=== PATIENT | male | born 1965 | race Caucasian/White ===

== ENCOUNTER 2018-03-04 01:17 | Emergency (ER) | payer SELFPAY ==
[~2018-03-04] VITALS: Ht 172.7 cm; Wt 63.5 kg
--- NOTE | 2018-03-04 01:24 | ED.ADGEN ---
Past History Past Medical History: Prostatitis, Other Smoking: Cigarettes Adult General Chief Complaint Chief Complaint "I ve not been feeling well... for a few days now... .. nausea and vomiting any time I eat.." HPI HPI Patient is a 52 year old male who presents with above hx and complaints of nausea, vomiting, dyspnea and Rt chest / shoulder pain. Pt. has had subjective complaints of fever and rigors. Pt. has had some coughing that has been non-productive. No hx travel or specific ill contacts. Pt. denies immunosuppression. Pt. does not follow with primary doctor. Pt. complaints of malaise and arthralgia. Pt quit smoking 6 weeks ago. Review of Systems Review of Systems Constitutional: subjective hx fever or chills [] Eyes: Denies change in visual acuity, redness, or eye pain [] HENT: Denies nasal congestion or sore throat [] Respiratory: Hx of cough and Rt. chest wall discomfort] Cardiovascular: No additional information not addressed in HPI [] GI: Hx of upper rt. abdominal pain, nausea, vomiting. Denies, bloody stools or diarrhea [] : Denies dysuria or hematuria [] Musculoskeletal: Complaints of Rt. back pain and myalgia Integument: Denies rash or skin lesions [] Neurologic: Denies headache, focal weakness or sensory changes [] Endocrine: Denies polyuria or polydipsia [] All other systems were reviewed and found to be within normal limits, except as documented in this note. Family History Family History Noncontributory Current Medications Current Medications Current Medications Medications (Trade) Dose Ordered Sig/Maria A Start Time Stop Time Status Last Admin Dose Admin Albuterol/ Ipratropium (Duoneb) 3 ml RTQID 03/04/18 08:00 03/05/18 07:59 Aspirin (Children'S Aspirin) 324 mg 1X ONCE 03/04/18 02:15 03/04/18 02:17 DC 03/04/18 02:15 324 MG Azithromycin (Zithromax) 500 mg DAILY 03/05/18 09:00 Ceftriaxone Sodium 1 gm/ Sodium Chloride 50 ml @ 100 mls/hr DAILY 03/04/18 09:00 UNV Ceftriaxone Sodium (Rocephin) 1 gm Q24H 03/05/18 09:00 Enoxaparin Sodium (Lovenox 60mg Syringe) 60 mg STK-MED ONCE 03/04/18 04:20 03/04/18 04:21 DC Enoxaparin Sodium (Lovenox) 60 mg 1X ONCE 03/04/18 04:15 03/04/18 05:28 DC 03/04/18 04:15 60 MG Famotidine (Pepcid Vial) 20 mg STK-MED ONCE 03/04/18 01:53 03/04/18 01:54 DC Famotidine (Pepcid) 20 mg 1X ONCE 03/04/18 02:15 03/04/18 02:17 DC 03/04/18 02:15 20 MG Lactated Ringer's 1,000 ml @ 160 mls/hr Q6H15M 03/04/18 03:15 Multivitamins/ Minerals 10 ml/ Folic Acid 1 mg/ Thiamine HCl 100 mg/Lactated Ringer's 1,011.1 ml @ 1,000 mls/ hr 1X ONCE 03/04/18 03:15 03/04/18 04:15 DC Ondansetron HCl (Zofran Odt) 8 mg PRN QID PRN 03/04/18 03:00 Potassium Chloride (KCl Oral Soln) 40 meq 1X ONCE 03/04/18 03:15 03/04/18 03:16 DC Sodium Chloride 1,000 ml @ 1,000 mls/hr 1X ONCE 03/04/18 03:15 03/04/18 04:14 DC 03/04/18 03:26 1,000 MLS/HR Allergies Allergies Allergies Coded Allergies Type Severity Reaction Last Updated Verified No Known Drug Allergies 03/04/18 No Physical Exam Physical Exam Constitutional: Moderately acute distress, ill in appearance. [] HENT: Normocephalic, atraumatic, bilateral external ears normal, oropharynx dry , no oral exudates, nose normal. [] Eyes: PERRLA, EOMI, conjunctiva pale, no discharge. [] Neck: Normal range of motion, no tenderness, supple, no stridor. [] Cardiovascular:Tachycardia Heart rate regular rhythm, no murmur [] Lungs & Thorax: Bilateral breath sounds equal apex with rhonchi and crackles, in Rt. lower lung motta on auscultation Abdomen: Bowel sounds normal, soft, Rt upper quadrant tenderness, no masses, no pulsatile masses. [] Skin: Warm, dry, no erythema, no rash. Pale. Poor turgor. Back: No tenderness, no CVA tenderness. [] Extremities: No tenderness, no cyanosis, no clubbing, ROM intact, no edema. [] Neurologic: Alert and oriented X 3, no gross motor and sensory function deficit , does complain of generalized weakness, no focal deficits noted. [] Psychologic: Affect anxious judgement normal, mood depressed. Current Patient Data Vital Signs Vital Signs Date Time Temp Pulse Resp B/P (MAP) Pulse Ox O2 Delivery O2 Flow Rate FiO2 03/04/18 04:24 97.5 112 22 110/66 (81) 93 Nasal Cannula 2.0 Lab Results Laboratory Tests Test 03/04/18 02:22 03/04/18 02:52 03/04/18 04:49 White Blood Count 17.4 x10^3/uL (4.0-11.0) H Red Blood Count 2.57 x10^6/uL (4.30-5.70) L Hemoglobin 7.3 g/dL (13.0-17.5) L Hematocrit 22.4 % (39.0-53.0) L Mean Corpuscular Volume 87 fL (79-100) Mean Corpuscular Hemoglobin 28 pg (25-35) Mean Corpuscular Hemoglobin Concent 32 g/dL (31-37) Red Cell Distribution Width 13.0 % (11.5-14.5) Platelet Count 323 x10^3/uL (140-400) Neutrophils (%) (Auto) 96 % (31-73) H Lymphocytes (%) (Auto) 1 % (24-48) L Monocytes (%) (Auto) 2 % (0-9) Eosinophils (%) (Auto) 0 % (0-3) Basophils (%) (Auto) 0 % (0-3) Neutrophils # (Auto) 16.7 x10^3uL (1.8-7.7) H Lymphocytes # (Auto) 0.2 x10^3/uL (1.0-4.8) L Monocytes # (Auto) 0.4 x10^3/uL (0.0-1.1) Eosinophils # (Auto) 0.0 x10^3/uL (0.0-0.7) Basophils # (Auto) 0.0 x10^3/uL (0.0-0.2) Segmented Neutrophils % 64 % (35-66) Band Neutrophils % 32 % (0-9) H Lymphocytes % 1 % (24-48) L Monocytes % 3 % (0-10) Platelet Estimate Adequate (ADEQUATE) Prothrombin Time 12.5 SEC (9.4-11.4) H Prothrombin Time INR 1.2 (0.9-1.1) H PTT 32 SEC (23-33) D-Dimer (Perla) 6.14 mg/L (0.00-0.50) H Sodium Level 134 mmol/L (136-145) L Potassium Level 5.9 mmol/L (3.5-5.1) H Chloride Level 93 mmol/L (98-107) L Carbon Dioxide Level 8 mmol/L (21-32) *L Anion Gap 33 (6-14) H Blood Urea Nitrogen > 240 mg/dL (8-26) H Creatinine 18.1 mg/dL (0.7-1.3) H Estimated GFR (Cockcroft-Gault) 2.8 Glucose Level 111 mg/dL (70-99) H Lactic Acid Level 3.6 mmol/L (0.4-2.0) H Calcium Level 8.4 mg/dL (8.5-10.1) L Magnesium Level 1.4 mg/dL (1.8-2.4) L Total Bilirubin 0.7 mg/dL (0.2-1.0) Direct Bilirubin < 0.1 mg/dL (0.0-0.2) Aspartate Amino Transferase (AST) 23 U/L (15-37) Alanine Aminotransferase (ALT) 37 U/L (16-63) Alkaline Phosphatase 100 U/L (46-116) Creatine Kinase 146 U/L (39-308) Creatine Kinase MB (Mass) 7.1 ng/mL (0.0-3.6) H Creatine Kinase MB Relative Index 4.9 % (0-4) H Troponin I Quantitative 0.043 ng/mL (0-0.055) WU-Wxu-U-Type Natriuretic Peptide 1870 pg/mL (0-124) H Total Protein 8.5 g/dL (6.4-8.2) H Albumin 4.2 g/dL (3.4-5.0) Lipase 281 U/L (73-393) POC Troponin I 0.02 ng/ml (<0.08) Urine Collection Type Unknown Urine Color Yellow Urine Clarity Hazy Urine pH 6.0 Urine Specific [place] 1.010 Urine Protein 30 mg/dl (NEG-TRACE) Urine Glucose (UA) Neg mg/dL (NEG) Urine Ketones (Stick) Neg mg/dL (NEG) Urine Blood Mod (NEG) Urine Nitrite Neg (NEG) Urine Bilirubin Neg (NEG) Urine Urobilinogen Dipstick 0.2 mg/dL (0.2 mg/dL) Urine Leukocyte Esterase Large (NEG) Urine RBC Occ /HPF (0-2) Urine WBC >40 /HPF (0-4) Urine Squamous Epithelial Cells None /LPF Urine Bacteria Few /HPF (0-FEW) EKG EKG My interpretation of EKG shows sinus tachy. 112, non specific radha lateral changes. No findings of acue STEMI with contralateral changes. [] Radiology/Procedures Radiology/Procedures My interpretation of CXR shows Rt. lower lobe consolidation- infiltrate consistent with pneumonia. [] Course & Med Decision Making Course & Med Decision Making Pertinent Labs and Imaging studies reviewed. (See chart for details) Lab still down for Electrolytes Admit to Dr. Rondon- [facility] further eval and tx. Dr. Rondon requested a ICU bed. Nephrology consult and pulmonary consult Critical Care- 90 min Still awaiting room cleaning at [facility]- ICU before transfer. 0530 hrs. Still awaiting room cleaning at [facility]- ICU 0600 [] Final Impression Final Impression 1. Chest Pain 2. Nausea and Vomiting 3. Pneumonia 4. Dehydration 5. Hyponatremia 6. Elevated BUN /Creat. 7. Hyperkalemia 8. Acute Renal Failure 9. Sepsis 10.Leukocytosis- with bandemia 17.4, Bands 32 11. Anemia Hgb 7.3 12. Elevated D-dimer 6.14 13. Elevated Lactic Acid. Problems: Dragon Disclaimer Dragon Disclaimer This electronic medical record was generated, in whole or in part, using a voice recognition dictation system. SELINA WOLF MD March 04, 2018 01:23
[2018-03-04] MEDS ORDERED: ONDANSETRON ODT 4 MG TAB.RAPDIS PO ONE (01:45)
--- NOTE | 2018-03-04 01:51 | EKG ---
[address] [address] Test Date: 2018-03-04 Test Time: 01:47:18 Pat Name: GRETA SHETH Department: Room: Gender: M Barrel Handler: [facility] : 1965 Requested By: SELINA WOLF Order Number: [id number] Reading MD: Stiven North MD Measurements Intervals Zachary Rate: 112 P: 48 SC: 144 QRS: 45 QRSD: 80 T: 52 QT: 294 QTc: 403 Interpretive Statements SINUS TACHYCARDIA Electronically Signed On 03-06-2018 12:09:48 CDT by Stiven North MD
[2018-03-04] MEDS ORDERED: FAMOTIDINE 20 MG/2 ML VIAL ONE (01:53)
[2018-03-04] MEDS ORDERED: IV RINGERS SOLUTION,LACTATED 1,000 ML IV SCH ×2 (02:00→03:15)
[2018-03-04] MEDS ORDERED: FAMOTIDINE 20 MG TABLET PO ONE (02:15)
[2018-03-04] MEDS ORDERED: ASPIRIN 81 MG TAB.CHEW PO ONE (02:15)
[2018-03-04] MEDS ORDERED: IPRATRPIUM/ALBUTEROL 0.5/2.5MG 3 ML NEBU. NEB ONE (02:30)
[2018-03-04] MEDS ORDERED: IV RINGERS SOLUTION,LACTATED 1,000 ML IV ONE (03:00)
[2018-03-04] MEDS ORDERED: AZITHROMYCIN 250 MG TABLET. PO ONE (03:00)
[2018-03-04] MEDS ORDERED: ONDANSETRON ODT 4 MG TAB.RAPDIS PO PRN (03:00)
[2018-03-04] MEDS ORDERED: cefTRIAXone IV Push 1 GM VIAL. IVP ONE (03:00)
[2018-03-04] MEDS ORDERED: IV NORMAL SALINE 1,000ML 1,000 ML IV ONE (03:15)
[2018-03-04] MEDS ORDERED: POTASSIUM CHLORIDE 20 MEQ/15 ML ORAL LIQUID. PO ONE (03:15)
[2018-03-04] MEDS ORDERED: MVI, ADULT NO.4 WITH VIT K 10 ML, FOLIC ACID SYRINGE for ER 1 MG, THIAMINE 100 MG in IV... IV ONE ×4 (03:15)
[2018-03-04 03:26] LABS: BASO % 0 % (0-3); EOS % 0 % (0-3); HEMATOCRIT 22.4 % (39.0-53.0); HEMOGLOBIN 7.3 g/dL (13.0-17.5); LYMPH # 0.2 x10^3/uL (1.0-4.8); LYMPH % 1 % (24-48); MEAN CORPUSCULAR HEMOGLOBIN 28 pg (25-35); MEAN CORPUSCULAR HGB CONC 32 g/dL (31-37); MEAN CORPUSCULAR VOLUME 87 fL (79-100); MONO # 0.4 x10^3/uL (0.0-1.1); MONO % 2 % (0-9); NEUT # 16.7 x10^3uL (1.8-7.7); NEUT % 96 % (31-73); PLATELET COUNT 323 x10^3/uL (140-400); RED BLOOD COUNT 2.57 x10^6/uL (4.30-5.70); WHITE BLOOD COUNT 17.4 x10^3/uL (4.0-11.0)
[2018-03-04 03:51] LABS: % BANDS 32 % (0-9); % LYMPHS 1 % (24-48); % MONOS 3 % (0-10); % SEGS 64 % (35-66); PLT ESTIMATE ADEQUATE (ADEQUATE)
[2018-03-04] MEDS ORDERED: ENOXAPARIN 40 MG/0.4 ML SYRINGE. SQ ONE (04:15)
[2018-03-04] MEDS ORDERED: ENOXAPARIN ** NOTE DOSE ** SYRINGE SQ ONE (04:20)
[2018-03-04 04:31] LABS: ALBUMIN 4.2 g/dL (3.4-5.0); BLOOD UREA NITROGEN > 240 mg/dL (8-26); CALCIUM 8.4 mg/dL (8.5-10.1); GLUCOSE 111 mg/dL (70-99); TOTAL PROTEIN 8.5 g/dL (6.4-8.2)
[2018-03-04 04:32] LABS: ALK PHOS 100 U/L (46-116); ALT (SGPT) 37 U/L (16-63); AST (SGOT) 23 U/L (15-37); CREATININE 18.1 mg/dL (0.7-1.3); GFR 2.8; SODIUM 134 mmol/L (136-145); TOTAL BILIRUBIN 0.7 mg/dL (0.2-1.0)
[2018-03-04 04:33] LABS: CHLORIDE 93 mmol/L (98-107); POTASSIUM 5.9 mmol/L (3.5-5.1)
[2018-03-04 04:34] LABS: ANION GAP 33 (6-14); CARBON DIOXIDE 8 mmol/L (21-32)
[2018-03-04 04:35] LABS: DIRECT BILIRUBIN < 0.1 mg/dL (0.0-0.2); MAGNESIUM 1.4 mg/dL (1.8-2.4)
[2018-03-04 04:36] LABS: LIPASE 281 U/L (73-393)
[2018-03-04 05:26] LABS: BACTERIA,URINE FEW /HPF (0-FEW); BILIRUBIN,URINE NEG (NEG); CLARITY,URINE HAZY; COLOR,URINE YELLOW; GLUCOSE,URINE NEG (NEG); NITRITE,URINE NEG (NEG); RBC,URINE OCC /HPF (0-2); UROBILINOGEN,URINE 0.2 mg/dL (0.2 mg/dL); WBC,URINE >40 /HPF (0-4)
[2018-03-04 05:55] LABS: BGAS PH 7.2 (7.35-7.46)
[2018-03-04] MEDS ORDERED: SODIUM BICARB ADULT 8.4% 50 MEQ/50 ML DISP.SYRIN. IV ONE (06:00)
[2018-03-04 06:02] LABS: AMPHETAMINE/METHAMPHETAMINE NEG (NEG); BARBITURATES NEG (NEG); BENZODIAZEPINES NEG (NEG); COCAINE NEG (NEG); METHADONE NEG (NEG); OPIATES NEG (NEG); PHENCYCLIDINE NEG (NEG)
[2018-03-04 06:03] LABS: CANNABINOIDS NEG (NEG)
[2018-03-04 07:26] VITALS: BP 119/70
[2018-03-04] MEDS ORDERED: IPRATRPIUM/ALBUTEROL 0.5/2.5MG 3 ML NEBU. NEB SCH (08:00)
--- NOTE | 2018-03-04 10:16 | RAD ---
EXAM: Chest, 2 views; abdomen, 2 views. HISTORY: Pain. COMPARISON: None. FINDINGS: CHEST: Frontal and lateral views of the chest are obtained. There is right lower lobe consolidation. No effusion or pneumothorax is seen. The heart is normal in size. ABDOMEN: Frontal upright and supine views of the abdomen are obtained. There is gas and stool within the colon. No abnormally dilated air-filled loop of bowel seen. There is no free air. IMPRESSION: 1. Right lower lobe consolidation. Follow-up to confirm complete resolution and exclude an underlying lesion. 2. Nonobstructive bowel gas pattern. Electronically signed by: Nathalie Le MD (03/04/2018 10:13 AM) [id number]
[2018-03-05] MEDS ORDERED: cefTRIAXone IV Push 1 GM VIAL. IVP SCH (09:00)
[2018-03-05] MEDS ORDERED: AZITHROMYCIN 250 MG TABLET. PO SCH (09:00)
== END 2018-03-04 07:40 | disposition short-term general hospital (02) ==
LOC: ER 01:17
DX: A41.9 Sepsis, unspecified organism (principal); J18.1 Lobar pneumonia, unspecified organism; E86.0 Dehydration; E87.1 Hypo-osmolality and hyponatremia; E87.5 Hyperkalemia; N17.9 Acute kidney failure, unspecified; D64.9 Anemia, unspecified; R74.0 Nonspecific elevation of levels of transaminase and lactic acid dehydrogenase [LDH]; R79.1 Abnormal coagulation profile; R79.89 Other specified abnormal findings of blood chemistry; D72.825 Bandemia; Z87.891 Personal history of nicotine dependence
CPT/HCPCS: 36415; 36600; 51701; 71046; 74021; 80048; 80076; 80307; 81001; 82553; 82803; 83605; 83690; 83735; 83880; 84443; 84484; 85007; 85025; 85045; 85379; 85610; 85730; 87040; 87086; 87205; 93005; 94640; 96361; 96372; 96374; 96375; 99291; 99292; G0238; J0456; J0696; J1650; J7120; J7620; Q0162; G0479; J7030

== ENCOUNTER → 2020-09-30 | Outpatient (CLI) | payer SELFPAY | LOC: LAB 09:56 | PROVIDERS: ATTEND Internal Medicine Nephrology | DX: E87.5 Hyperkalemia (principal) | CPT/HCPCS: 36415; 84132 ==

== ENCOUNTER → 2021-04-04 | Outpatient (CLI) | payer MEDICAID ==
--- NOTE | 2021-04-04 17:07 | CARD ---
MR#: [id number] Date of Study: 04/04/2021 Ordering Physician: IMELDA SINGER, Referring Physician: IMELDA SINGER, Tech: Chata Alarcon, [facility] APPROVED REPORT EXAM: Two-dimensional and M-mode echocardiogram with Doppler and color Doppler. Other Information Quality : AverageHR: 76bpm INDICATION Pericardial Effusion RISK FACTORS Hypertension Previous smoker 2D DIMENSIONS Left Atrium(2D)3.6 (1.6-4.0cm)IVSd1.0 (0.7-1.1cm) Aortic Root(2D)3.4 (2.0-3.7cm)LVDd5.4 (3.9-5.9cm) LVOT Diameter2.0 (1.8-2.4cm)PWd1.0 (0.7-1.1cm) LVDs3.3 (2.5-4.0cm)FS (%) 38.3 % SV94.7 mlLVEF(%)68.0 (>50%) Aortic Valve AoV Peak Tang.392.2cm/sAoV VTI87.1cm AO Peak GR.61.5mmHgLVOT Peak Tang.116.3cm/s LVOT VTI 27.47cmAO Mean GR.34mmHg RANJITH (VMAX)0.66ei2AMX (VTI)1.02cm2 AI P 1/2 [id number] Mitral Valve MV E Bhwjiace250.3cm/sMV E Peak Gr.152mmHg MV DECEL [id number] A Oenxcetj341.3cm/s MV E Mean Gr.8mmHgE/A Ratio1.1 Pulmonary Valve PV Peak Ulyfiiqf88.5cm/sPV Peak Grad.3mmHg Tricuspid Valve TR P. Emewzwcr320vq/sRAP [id number] TR Peak Gr.00vrJoVVMO26zxDc LEFT VENTRICLE The left ventricle is normal size. There is normal left ventricular wall thickness. The left ventricu lar systolic function is normal. The Ejection Fraction is 55-60%. There is normal LV segmental wall m otion. Transmitral Doppler flow pattern is Grade II-pseudonormal filling dynamics. RIGHT VENTRICLE The right ventricle is mildly dilated. There is normal right ventricular wall thickness. Systolic fun ction is borderline reduced. ATRIA The left atrium is borderline dilated. The right atrium size is normal. The interatrial septum is int act with no evidence for an atrial septal defect or patent foramen ovale as noted on 2-D or Doppler i maging. AORTIC VALVE The aortic valve is thickened but opens well. Doppler and Color Flow revealed mild aortic regurgitati on. Calculated aortic valve area is 1.0 cm2 with maximum pressure gradient of 62 mmHg and mean pressu re gradient of 34 mmHg. There is moderate valvular aortic stenosis. MITRAL VALVE The mitral valve is calcified and displays decreased opening. There is no evidence of mitral valve pr olapse. There is moderate mitral valve stenosis with a mean gradient of 8 mmHg. Doppler and Color-darrell w revealed mild to moderate mitral regurgitation. TRICUSPID VALVE The tricuspid valve is normal in structure and function. Doppler and Color Flow revealed mild to mode rate tricuspid regurgitation with an estimated PAP of 66 mmHg. There is no tricuspid valve stenosis. PULMONIC VALVE The pulmonic valve is not well visualized. Doppler and Color Flow revealed mild pulmonic valvular reg urgitation. GREAT VESSELS The aortic root is normal in size. The ascending aorta is normal in size. The IVC is dilated and gerardo apses <50% PERICARDIAL EFFUSION Right pleural effusion noted. There is a trace pericardial effusion. Critical Notification Critical Value: No <Conclusion> The left ventricular systolic function is normal. The Ejection Fraction is 55-60%. There is normal LV segmental wall motion. There is moderate valvular aortic stenosis with mean gradient 34 mmHg.. Mild aortic regurgitation. Moderate mitral valve stenosis with a mean gradient of 8 mmHg. Mild to moderate mitral regurgitation. Mild to moderate tricuspid regurgitation with an estimated PAP of 66 mmHg. There is a trace pericardial effusion. Signed by : Marlon Farmer, Electronically Approved : 04/04/2021 17:07:18
== END ==
LOC: ECHO 12:48
PROVIDERS: ATTEND Internal Medicine Cardiovascular Disease
DX: I08.8 Other rheumatic multiple valve diseases (principal)
CPT/HCPCS: 93306